=== PATIENT | female | born 2005 | race Caucasian/White ===

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

== ENCOUNTER 2025-06-22 17:45 | Emergency (ER) | payer OTHER, SELFPAY ==
--- NOTE | ~2025-06-22 | CT_ITS ---
CLINICAL HISTORY: blood in the urine, r o kidney stone CT abdomen and pelvis without contrast Comparison: US/CT/SR - US ABDOMEN LIMITED - 02/17/23 11:50 EDT Findings: No consolidation or effusion. Evaluation of the parenchymal organs is limited by the lack of intravenous contrast, however, the liver, gallbladder, spleen, pancreas, kidneys and adrenal glands are normal in appearance. No renal stones. No ureteral stones. No bowel obstruction, pneumoperitoneum, or pneumatosis. Moderate fecal loading in the colon. Normal appendix. Uterus and adnexa are normal. No acute fracture. IMPRESSION: No acute findings. No evidence of obstructive uropathy. No renal or ureteral stones seen. This document has been electronically signed by: Josiah Montero MD on 06/22/2025 21:40:13
[2025-06-22 17:50] VITALS: BP 141/76; PULSE 83; RESP 16; TEMP 36.8; O2SAT 99; BMI 33.2
--- NOTE | 2025-06-22 17:51 | ED_ITS ---
HPI - Female Genitourinary General Chief complaint: Urogenital-Female Stated complaint: pain when urinating Time Seen by Provider: 06/22/25 19:14 Source: patient and family Mode of arrival: ambulatory Limitations: no limitations History of Present Illness ED Provider: DR. Cabrera HPI Narrative: 20-year-old female came in for evaluation of dysuria, no no fever, no chills, no nausea, no vomiting, patient recently was treated for UTI on 06/09. Otherwise no abdominal pain, no flank pain, no fever, no chills. Sexually not active for the past 2 months was low risk for STD, no vaginal discharge, no vaginal bleed. No past intra-abdominal surgical history. Related Data Previous Rx's ?Medication ?Instructions ?Recorded albuterol sulfate 90 mcg/actuation 2 puff inhalation Q 4-6H PRN 08/19/21 aerosol inhaler (ProAir HFA) shortness of breath or wh eezing #8.5 grams azithromycin 250 mg tablet 250 mg PO DAILY 4 days #4 t abs 08/19/21 (Zithromax) prednisone 20 mg tablet 40 mg (2 x 20 mg) PO DAILY # 10 tabs 08/19/21 ondansetron 4 mg disintegrating 4 mg PO Q8H PRN nausea and 07/13/22 tablet vomiting #7 tabs nitrofurantoin 100 mg PO BID #14 caps 06/22 monohydrate/macrocrystals 100 mg capsule (Macrobid) phenazopyridine 100 mg tablet 100 mg PO TID #6 tabs (Pyridium) Allergies Allergy/AdvReac Type Severity Reaction Status Date / Time amoxicillin (AMOXICILLIN) Allergy Unknown RASH Verified 06/22/25 17:51 Review of Systems 2 Review of Systems: All other systems are reviewed and are negative Constitutional: Reports as per HPI and Reports no additional constitutional complaints Eyes: Reports as per HPI and Reports no additional eye complaints Reports system reviewed and no additional complaints, except as documented Cardiovascular: Reports as per HPI and Reports no additional cardiovascular complaints Respiratory: Reports as per HPI and Reports no additional respiratory complaints Gastrointestinal: Reports as per HPI and Reports no additional gastrointestinal complaints Genitourinary: Reports no additional female genitourinary complaints Musculoskeletal: Reports no additional musculoskeletal complaints Skin/Breast: Reports system reviewed and no additional complaints, except as docu Psychiatric: Reports no additional psychiatric complaints Endocrine: Reports no additional endocrine complaints Hematologic/Lymphatic: Reports no additional hematologic/lymphatic complaints Allergic/Immunologic: Reports no additional allergic/immunologic complaints Reports system reviewed and no additional complaints, except as documented and Reports Abnormal speech present [facility] Social History Social History Alcohol intake: never Smoked in Last 30 Days: No Use of substances other than those prescribed or required for medical reasons: No Advance Directives: No Advance Directives Information Provided: No Physical Exam 2 Vital Signs: Vital Signs: Last Vital Signs Temp 97.4 F 06/22/25 19:53 Pulse 78 06/22/25 19:53 Resp 16 06/22/25 19:53 BP 129/74 06/22/25 19:53 Pulse Ox 100 06/22/25 19:53 O2 Del Method Room Air 06/22/25 19:53 BMI result Body Mass Index 33.2 Vital signs have been reviewed and appear to be correct. Blood pressure elevated. Heart rate normal. Respiratory rate normal. Temperature normal. Oxygen saturation normal. Appearance: Alert. Oriented X3. No acute distress. Head: Normal external exam. Normocephalic. Atraumatic. No Antoine signs noted. No raccoon eyes noted Eyes: PERRLA. EOMI. Conjunctiva and sclera normal. Eyelids normal. ENT: TM's Normal. Pharynx normal. Uvula midline. Moist mucous membranes. No trismus noted. No drooling noted. No muffled voice noted. Neck: Normal inspection. Neck supple. FROM. No adenopathy. Thyroid Normal. No meningeal signs. No neck mass noted. CVS: Normal heart rate and rhythm. Heart sound normal. No murmurs noted. Pulses normal throughout. Respiratory: No respiratory distress. Painless inspiration. Breath sounds normal. No wheezes/rales/rhonchi noted. Chest nontender. No accessory muscle usage noted or decreased air movement noted. Abdomen: Soft and nontender. Bowel sounds normal in all 4 quadrants. No distention noted. No organomegaly noted. No visible injury noted. Back: No CVA tenderness. Full range of motion noted. Skin: Skin warm and dry. Normal skin color. Normal skin turgor. No rashes/lesions/lacerations noted. Extremities: No lower extremity edema. Extremities exhibit normal range of motion. Extremities nontender. Neuro: Oriented X 3. Cranial nerve exam: II-XII are grossly intact No motor deficit. No sensory deficit. Reflexes normal. Course Course Course Narrative: This is an RME: Additional HPI, ROS, PE not included below will be deferred to primary provider. RME assessment and note performed by: Huong Alvarez PA-C This is a 82-mme[age]-bet-female who presents to the ER with a complaint of dysuria. Reports that she was seen on 06/09 at an urgent care and was placed on antibiotics. Patient was seen at an urgent care for question of a urinary tract infection on 06/16 and was treated with Flagyl and Pyridium. Patient reports that her symptoms resolved however does report that she now has burning with urination, urinary frequency and urgency. No concerns for any sexually transmitted infection, she does report some left-sided back pain and low back pain. Plan: Labs, UA, further ER evaluation needed. Reevaluation(s) Reevaluation #1: Dysuria, recently finished 7 days course of Flagyl treating UTI, no risk for STD however will test for STD. Will start the patient for on Pyridium and 7 days course of Macrobid. +hematuria in the urine consider CT of the abdomen and pelvis rule out kidney stone signed out to Dr. Iqbal. Time: 20:30 Reevaluation #2: Rasheed: The patient was signed out to me at change of shift pending the results of a CT of the abdomen and pelvis to evaluate for a possible kidney stone. The CT shows no acute findings and specifically no obstructive uropathy or ureteral stones. Plan has been for the patient to be discharged with a prescription for nitrofurantoin b.i.d. and phenazopyridine p.r.n.. I explained the results of the scan to the patient and the plan with the prescriptions. The patient seems comfortable with this plan and can follow up with her PCP at [facility]. Return if worse. Time: 21:49 Medical Decision Making Differential Diagnosis Differential Diagnoses: The differential diagnosis associated with the presentation includes (UTI, STD, sepsis.) Admission/Observation Consideration of admission/observation: Escalation of care including admission/observation considered Lab Data MDM Lab Attestation statement: I reviewed the patient's lab results. 06/22/25 18:41 06/22/25 18:41 Labs: Lab Results 06/22/25 Range/Units 18:41 WBC 9.4 (4.8-10.8) X10*3/uL RBC 4.70 (4.20-5.50) X10*6/uL Hgb 14.3 (12.0-16.0) g/dl Hct 41.9 (37.0-47.0) % MCV 89.1 (80.0-98.0) fL MCH 30.4 (27.0-33.0) pg MCHC 34.1 (31.0-35.0) g/dl RDW 12.3 (11.0-16.0) % Plt Count 283 (160-400) X10*3/uL MPV 10.2 (9.4-12.3) fL Immature Gran % (Auto) 0.7 H (0.0-0.4) % Neut % (Auto) 47.9 (45-73) % Lymph % (Auto) 42.1 H (20-40) % Pickett % (Auto) 7.4 (2-11) % Eos % (Auto) 1.4 (0-4) % Baso % (Auto) 0.5 (0-2) % Lymph # (Auto) 4.0 (1.2-4.9) X10*3/uL Pickett # (Auto) 0.7 (0.1-1.2) X10*3/uL Eos # (Auto) 0.1 (0.0-0.4) X10*3/uL Baso # (Auto) 0.1 (0.0-0.2) X10*3/uL Abs Immat Gran (auto) 0.07 H (0.00-0.03) X10*3/uL Absolute Neuts (auto) 4.5 (2.0-8.3) x10*3/uL Absolute Nucleated RBC 0.000 (0.0-0.012) X10*3/uL Nucleated RBC % (auto) 0.0 (0.0-0.2) /100WBC Sodium 141 (135-145) mmol/L Potassium 3.8 (3.3-5.1) mmol/L Chloride 109 H (96-108) mmol/L Carbon Dioxide 24 (22-29) mmol/L Anion Gap 12 (12-20) BUN 10 (9-16) mg/dL Creatinine 0.82 (0.5-1.4) mg/dL Estim Creat Clear Calc 117.3 Estimated GFR > 60 Random Glucose 63 (60-115) mg/dL Calcium 9.2 (8.4-10.2) mg/dL Total Bilirubin 0.2 (0.0-1.0) mg/dL Direct Bilirubin < 0.2 (0.0-0.5) mg/dL AST 29 (5-31) U/L ALT 34 H (0-31) U/L Alkaline Phosphatase 91 (39-117) U/L Total Protein 7.7 (6.5-8.0) g/dL Albumin 4.5 (3.5-5.0) g/dL Beta HCG, Quant < 2 mIU/mL Urine Color Yellow Urine Appearance Clear Urine pH 6.5 (5.0-9.0) Ur Specific [place] 1.015 (1.005-1.025) Urine Protein Negative (Neg-Trace) mg/dL Urine Glucose (UA) Negative (Negative) mg/dL Urine Ketones Negative (Negative) mg/dL Urine Blood Small (1+) H (Negative) Urine Nitrite Negative (Negative) Ur Leukocyte Esterase Moderate (2+) H (Negative) Urine RBC 3-5 H (0-2) /HPF Urine WBC 11-20 (0-5) /HPF Ur Squamous Epith Cells 3-5 (0-2) /HPF Urine Bacteria Trace (None Seen) Hyaline Casts 0-2 (0-2) /LPF Urine Yeast Present Discharge Plan Discharge Clinical Impression: Dysuria Patient Disposition: Home, Self-Care Instructions: Dysuria (ED) Additional Instructions: Antibiotics has been sent to the [facility] pharmacy at 02:35 [facility] in [place] please take the antibiotic 2 times a day. In addition a prescription for a phenazopyridine has been sent. This is a medication that helps ease urinary discomfort. This medication will turn your urine orange. Please drink lot of fluids. Please stay in touch with your regular doctor for additional advice as needed and follow up as scheduled. Return to the emergency room if significantly worse, especially if fever or vomiting. Prescriptions: New nitrofurantoin monohyd/m-cryst [Macrobid] 100 mg capsule 100 mg PO BID Qty: 14 0RF Rx Instructions: must administer with a meal/food phenazopyridine [Pyridium] 100 mg tablet 100 mg PO TID Qty: 6 0RF No Action prednisone 20 mg tablet 40 mg PO DAILY Qty: 10 0RF albuterol sulfate [ProAir HFA] 90 mcg/actuation HFA aerosol inhaler 2 puff inhalation Q4-6H PRN (Reason: shortness of breath or wheezing) Qty: 8.5 0RF azithromycin [Zithromax] 250 mg tablet 250 mg PO DAILY 4 Days Qty: 4 0RF Rx Instructions: start on day 2 of therapy ondansetron 4 mg tablet,disintegrating 4 mg PO Q8H PRN (Reason: nausea and vomiting) Qty: 7 0RF Referrals: Jin Saucedo MD [Physician, Internal Medicine] Print Language: Guyanese
[2025-06-22 18:51] LABS: MANUAL DIFF FLAG NO
[2025-06-22 18:54] LABS: Appearance Urine Clear; Glucose Urine UA Negative (Negative); PH 6.5 (5.0-9.0); Specific Gravity - Urine 1.015 (1.005-1.025); UMIC TRIGGER UACC YES
[2025-06-22 19:00] LABS: Hematocrit 41.9 % (37.0-47.0); Hemoglobin 14.3 g/dl (12.0-16.0); Imm Gran Abs Auto 0.07 X10*3/uL (0.00-0.03); Imm Gran Pct Auto 0.7 % (0.0-0.4); Lymphocytes Absolute Auto 4.0 X10*3/uL (1.2-4.9); Mean Corpuscular HGB Conc 34.1 g/dl (31.0-35.0); Mean Corpuscular Hemoglobin 30.4 pg (27.0-33.0); Mean Corpuscular Volume 89.1 fL (80.0-98.0); NRBC Abs Auto 0.000 X10*3/uL (0.0-0.012); NRBC Pct Auto 0.0 /100WBC (0.0-0.2); Platelet Count 283 X10*3/uL (160-400); Red Blood Count 4.70 X10*6/uL (4.20-5.50); White Blood Count 9.4 X10*3/uL (4.8-10.8)
[2025-06-22 19:11] LABS: UACC Culture Trigger YES
[2025-06-22 19:21] LABS: Alanine Aminotransferase 34 U/L (0-31); Albumin Level 4.5 g/dL (3.5-5.0); Alkaline Phosphatase 91 U/L (39-117); Anion Gap 12 (12-20); Aspartate Amino Transferase 29 U/L (5-31); Blood Urea Nitrogen 10 mg/dL (9-16); Calcium 9.2 mg/dL (8.4-10.2); Carbon Dioxide 24 mmol/L (22-29); Chloride 109 mmol/L (96-108); Creatinine Clr Calc Pharmacy 117.3; Estimated Glomerular Filt Rate > 60; Potassium 3.8 mmol/L (3.3-5.1); Sodium 141 mmol/L (135-145); Total Protein 7.7 g/dL (6.5-8.0)
--- OUTSIDE RECORDS SUMMARY | 2025-06-22 19:47 | XMS_ITS | Encounter Summary ---
Author Organization [facility] Address [address] [place] [address] Phone Care Team Providers Care Population Geneticist Name Role Phone Johanne Park MD Primary Care Provider [phone] Encounter Details Date Type Department Care Team (Late st Contact Info) Description 07/14/2010 Documentation EM Family Medicine [address] [place] [address] Family Medicine, Physician [address] [place], [place] [address] Social History Tobacco Use Types Packs/Day Years Used Date Smoking Tobacco: Never Assessed Comments Unknown Sex and Gender Information Value Date Recorded Sex Assigned at Not on file Legal Sex Female 4:49 PM EDT Gender Identity Not on file Sexual Orientation Not on file documented as of this encounter Plan of Treatment Not on file documented as of this encounter Visit Diagnoses Not on filedocumented in this encounter Care Teams Population Geneticist Relationship Specialty Start Date End Date Johanne Park MD [address] [place] [address] [place] [address] PCP - General 04/10/17 03/01/23 documented as of this encounter
--- OUTSIDE RECORDS SUMMARY | 2025-06-22 19:47 | XMS_ITS | Clinical Summary ---
Author Organization [facility] Address [address] [place] [address] Phone Care Team Providers Care Cloth Washer Back Tender Name Role Phone Unavailable Primary Care Provider Unavailabl e Immunizations Immunization Administration Dates Next Due DTaP / Hep B / IPV 2005,2005, 005 DTaP 5 03/19/2009,09/11/2006 Hep A, ped/adol 03/22/2007,09/11/2006 Hep B, ped/adol 2005 Hib (HbOC) 2005,2005 Hib (PRP-T) 06/12/2006,2005 IPV 03/19/2009 Influenza Split 05/24/2012,05/15/2011,05/01/2010 Influenza, injectable, trivalent 009,07/05/2008,07/14/2007,06/12/2006 ,2005 MMR 03/19/2009,03/17/2006 Pneumococcal Conjugate 06/12/2006,2005,,2005 Varicella 03/19/2009,03/17/2006 Family History Relation Name Status Comments Brother 1 Alive Brother: Alive and well, Alive and well Brother 2 Alive Brother: Alive and well, Alive and well Cousin 1 Cousin: Autism, ADD/ADHD Cousin 2 Cousin: Autism, ADD/ADHD Father Alive Father: Asthma Maternal Grandfather Materna l grandparent: Diabetes mellitus Maternal Grandmother Materna l grandmother: Diabetes mellitus, kidney problems Mother Alive Mother: Alive a nd well Paternal Grandfather Paterna l grandfather: Diabetes mellitus Paternal Grandmother Paterna l grandmother: Valvular heart disease, Obesity Social History Tobacco Use Types Packs/Day Years Used Date Smoking Tobacco: Never Assessed Comments Unknown Sex and Gender Information Value Date Recorded Sex Assigned at Not on file Legal Sex Female 4:49 PM EDT Gender Identity Not on file Sexual Orientation Not on file Last Filed Vital Signs Vital Sign Reading Time Taken Comments Blood Pressure 86/54 06/20/2013 12:00 AM EDT Pulse 76 04/09/2011 12:00 AM EDT Temperature 36.6 C (97.9 F) 06/20/2013 12:00 AM EDT Respiratory Rate - - Oxygen Saturation 97% 04/26/2012 12:00 AM EDT Inhaled Oxygen Concentration - - Weight 37.4 kg (82 lb 8 oz) 06/20/2013 12:00 AM EDT Height 132.1 cm (4' 4 ) 06/20/2013 12:00 AM EDT Body Mass Index 21.45 06/20/2013 12:00 AM EDT Plan of Treatment Health Maintenance Due Date Last Done Comments DTaP,Tdap,and Td Vaccines (6 - Tdap) 2016 03/19/2009, 09/11/2006, 2005, Additional history exists HPV Vaccines (1 - 3-dose series) 2020 Men B Vaccine (1 of 2 - Standard) 2021 Influenza Vaccines (#1) 2025 05/24/20 12, 05/15/2011, 05/01/2010, Additional history exists COVID-19 Vaccine ( - 2024- season) 2025 Hepatitis B Vaccines Completed 2005, 2005, 2005, Additional history exists HIB Vaccines Completed 06/12/2006, 08/31, 2005, Additional history exists Pneumococcal Vaccine Completed 06/12/2006, 2005, 2005, Additional history exists Hepatitis A Vaccines Completed 03/22/2007, 09/11/19 07 IPV Vaccines Completed 03/19/2009, 08/31, 2005, Additional history exists MMR Vaccines Completed 03/19/2009, 03/17/2006 Varicella Vaccines Completed 03/19/2009, 03/17/2006 Meningococcal Vaccine Aged Out No magdaleno jung eligible based on patient's age to complete this topic
--- OUTSIDE RECORDS SUMMARY | 2025-06-22 19:47 | XMS_ITS | Encounter Summary ---
Author Organization [facility] Address [address] [place] [address] Phone Care Team Providers Care Screen Printing Machine Operator Helper Name Role Phone Johanne Park MD Primary Care Provider [phone] Encounter Details Date Type Department Care Team (Late st Contact Info) Description 03/18/2010 Documentation EM Family Medicine [address] [place] [address] Family Medicine, Physician [address] [place], [place] [address] Social History Tobacco Use Types Packs/Day Years [...] on filedocumented in this encounter Care Teams Screen Printing Machine Operator Helper Relationship Specialty Start Date End Date Johanne Park MD [address] [place] [address] [place] [address] PCP - General 04/10/17 03/01/23 documented as of this encounter
--- OUTSIDE RECORDS SUMMARY | 2025-06-22 19:47 | XMS_ITS | Encounter Summary ---
Author Organization [facility] Address [address] [place] [address] Phone Care Team Providers Care Physical Integration Practitioner Name Role Phone Johanne Park MD Primary Care Provider [phone] Encounter Details Date Type Department Care Team (Late st Contact Info) Description 06/17/2012 Documentation [facility] Family Medicine [address] [place] [address] Family Medicine, Physician [address] [place], [place] [id number] Social History Tobacco Use Types Packs/Day Years [...] on filedocumented in this encounter Care Teams Physical Integration Practitioner Relationship Specialty Start Date End Date Johanne Park MD [address] [place] [address] [place] [address] PCP - General 04/10/17 03/01/23 documented as of this encounter
--- OUTSIDE RECORDS SUMMARY | 2025-06-22 19:47 | XMS_ITS | Encounter Summary ---
Author Organization [facility] Address [address] [place] [address] Phone Care Team Providers Care Director Of Front Office Name Role Phone Johanne Park MD Primary Care Provider [phone] Encounter Details Date Type Department Care Team (Late st Contact Info) Description 10/29/2010 Documentation EM Family Medicine [address] [place] [address] Family Medicine, Physician [address] [place], [place] [address] Social History Tobacco Use Types Packs/Day Years [...] on filedocumented in this encounter Care Teams Director Of Front Office Relationship Specialty Start Date End Date Johanne Park MD [address] [place] [address] [place] [address] PCP - General 04/10/17 03/01/23 documented as of this encounter
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
--- OUTSIDE RECORDS SUMMARY | 2025-06-22 19:47 | XMS_ITS | Encounter Summary ---
Author Organization [facility] Address [address] [place] [address] Phone Care Team Providers Care Photocomposing Keyboard Operator Name Role Phone Johanne Park MD Primary Care Provider [phone] Encounter Details Date Type Department Care Team (Late st Contact Info) Description 04/16/2017 Conversion Encounter [facility] [address] [place] [address] Social History Tobacco Use Types Packs/Day Years [...] on filedocumented in this encounter Care Teams Photocomposing Keyboard Operator Relationship Specialty Start Date End Date Johanne Park MD [address] [place] [address] PCP - General 04/10/17 03/01/23 documented as of this encounter
--- OUTSIDE RECORDS SUMMARY | 2025-06-22 19:47 | XMS_ITS | Clinical Summary ---
Author Organization [facility] [address] [place] [address] [facility] [place] [address] Phone Care Team Providers Care Service Technician Name Role Phone Jin Saucedo MD Primary Care Provider Allergies Active Allergy Reactions Criticality Noted Date Comments Amoxicillin 08/11/2013 Rash No welts Medications loratadine (CLARITIN) 10 mg tablet Take 1 Tablet by mouth daily for 90 days. 2 Active fluticasone propionate (FLONASE) 50 mcg/actuation nasal spray 1 [place] by Each Nare route daily. 2 Active mupirocin (BACTROBAN) 2 % ointment Apply 1 cm twice daily for 7 to 10 days. 1 Active reservoir inhalation (INSPIREASE) device Take 1 Device by mouth as needed for Other (to adminster MDI). 1 Active ibuprofen (ADVIL,MOTRIN) 600 mg tablet Take 1 Tab by mouth every 8 hours as needed for Pain. 0 Active albuterol HFA (PROAIR HFA ; PROVENTIL HFA ; VENTOLIN HFA) 90 mcg/actuation inhaler Inhale 2 Puffs into the lungs every 4 hours as needed for Shortness of Breath. Active Active Problems Problem Noted Date Diagnosed Date Chlamydia 06/27/2021 Overview (09/06/2024): 10-21 treated Seasonal allergic rhinitis due to pollen 021 Overview (09/06/2024): Winter and spring Claritin/flonase Last Assessment & Plan: 07/22: has been well. On meds a needed Dysmenorrhea 03/13/2020 Overview (09/06/2024): 9-20 treated with motrin/tylenol/lab today for PCOS 10-21 improved Last Assessment & Plan: 9-20 treated with motrin/tylenol/lab today for PCOS 10-21 improved Obesity due to excess calori es without serious comorbidity with body mass index (BMI) in 95th to 98th percentile for age in pediatric patient 03/16/2014 Encounters Date Type Department Care Team Description 06/16/2025 Telephone Adult Medicine [address] [phone] Jin Saucedo MD 05/29/2025 Telephone Adult Medicine [address] [phone] Jin Saucedo MD from Last 3 Months Immunizations Immunization Administration Dates Next Due DTaP (Infanrix) 6wks to less than 7yo 03/19/2009 ,09/11/2006 [id number] (Pentacel) 2mo to less than 5yo 06/12/2006,2005,2005,05/13 [id number]-[id number] (Pediarix) 6 w ks to less than 7yo 2005,2005,2005 HPV 9-valent (Gardisil) 9yo to less than 46yo 04/03/2016 HPV, Quadrivalent 01/20/2017,06/12/2006,09/16/19 06 Hepatitis A Pediatric (Havri x; Vaqta) 12mo to less than 19yo 03/22/2007,09/11/2006 Hepatitis B Pediatric (Enger ix B; Recombivax HB) to less than 20 yo 2005 IPV Inactivated polio (Ipol) 6wks and older 03/19/2009 Influenza trivalent, 0.5mL, preservative free (Fluarix; FluLaval; Fluzone) ages 6mo and older (Afluria) 3 years and older 05/28/2020,07/25/2019,08/04/2014 Influenza trivalent, with pr eservative (Fluzone; Afluria) 6mo and older 06/24/2021,05/24/2012,05/15/2011,05/01,06/06/2009,07/05/2008,07/14/2007 ,06/12/2006,2005 MMR, measles mumps and rubel la Live (Priorix; M-M-R II) 12mo and older 03/19/2009,03/17/2006 Meningococcal Conjugate (Men veo) MenACWY 11yo to less than 19 yo 07/16/2022 Meningococcal MCV4P 04/03/2016 PPD Test 07/29/2016 Pneumococcal Conjugate Vacci ne, 7 Valent 06/12/2006,2005,2005,05/12 Tdap Tetanus diptheria acell ular pertussis (Boostrix; Adacel) 7yo and older 04/03/2016 Varicella live (Varivax) 12m o and older 03/19/2009,03/17/2006 Surgical History Surgery Date Site/Laterality Comments OTHER SURGICAL HISTORY PROCEDURE: DENIES PREVIOUS SURGERY Medical History Medical History Date Comments Croup x3 2009 DX:Croup; COMMEN T: Maik direct laryngoscopy and flex bronchoscopy GERD (gastroesophageal reflu x disease) 2004 vomiting,admitted 2006 acid reflux [facility] DX:GERD (gastroesophageal reflux disease); COMMENT: Tess Ceballos 2004/,2006 CT head scan nl except cerebellar tonsillar ectopy/UGI (h.pylori)not treated bronchoscopy and last GI visit 2010- off all ETIENNE meds Fracture of right foot 12-08 DX:Fractu re of right foot Allergic rhinitis 03/16/2014 DX:Allergic rh initis; COMMENT: Winter and spring Claritin/flonase/singulair/zadi tor Abdominal pain 03/16/2014 DX:Abdominal [place] n; COMMENT: 04-12- trial lactaid Cerebellar tonsillar ectopia (CMS/HCC V24, 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 ? To have tonsils removed. 03/09/19 noted that patient never went to ENT or came in for follow up. History of strep pharyngitis 07/16/2015 DX: History of strep pharyngitis; COMMENT: 09/24/17 - Azithromycin. And - per H Sanchez History of early menarche 07/25/2019 DX:His tory of early menarche; COMMENT: Noted on Summary - 09/24/17 BMI (body mass index), pediatric, 95-99% for age 703/16/2014 DX:BMI (body mass index), pediatric, 95-99% for age; COMMENT: 04-13 nutrition ref via pedi endocrine 04-14 ref for nutrition 04/03/16 - father will call today Asthma DX:Asthma; COMME NT: 03/09/19, 09/17/18, 03/22/18 Mild exacerbation. Refill - ProAir Pdhmm9s, Flonase spray Lucero [facility],08-12 Jarek Horan NP Flovent 44 mcg 2 puffs daily(consider QVAR)f/u 6m repeat spirometry diag infancy ,triggers are cold air,running,uris,and allergen exposure ie cats, No hosp,orapred x2 sleep study 2011- NORMAL; singulair 2011 Flovent 44 bid f/u q 6m d/c 04-14 no * Dysmenorrhea 03/13/2020 DX:Dysmenorrhea Chronic tonsillitis 07/17/2020 DX:Chronic t onsillitis; COMMENT: 07-20 [facility] tonsillectomy Difficulty with family 06/12/2021 DX:Diffic ulty with family; COMMENT: 06-20 active 51A Obesity due to excess calori es without serious comorbidity with body mass index (BMI) in 95th to 98th percentile for age in pediatric patient 03/16/2014 DX:Obesity due to excess calories without serious comorbidity with body mass index (BMI) in 95th to 98th percentile for age in pediatric patient; COMMENT: 04-13 nutrition ref via pedi endocrine 04-14 ref for nutrition 04/03/16 - father will call today 05-20 ref pedi endocrine COVID-19 virus infection 03/31/2021 DX:COVI D-19 virus infection; COMMENT: 03/20 - symptomatic Seasonal allergic rhinitis d ue to pollen 02/06/2021 DX:Seasonal allergic rhiniti s due to pollen Chlamydia 06/27/2021 DX:Chlamydia; CO MMENT: 06-20 treated Family History Medical History Relation Name Comments Other: Other Brother 1 ADHD,learning p gil,obesity Hypertension Father Diabetes Maternal Grandfather Heart d isease, Cancer Diabetes Maternal Grandmother Stroke, kidney disease, HTN Asthma Mother's side mat uncle Liver disease Paternal Grandfather Diabetes Paternal Grandmother Heart d isease, HTN., [place] age 27 Relation Name Status Comments Brother 1 Brother 2 Alive ADHD Brother 3 Alive mild CP Brother 4 Alive Father Alive disabled MOVING CONSULTANT Maternal Grandfather Maternal Grandmother Mother Alive Mother's side Paternal Grandfather Paternal Grandmother Social History Tobacco Use Types Packs/Day Years [...] care for your loved ones. For example, professor of early childhood education or elderly care for an older adult? [...] on file Sexual Orientation Not on file Obstetrics History Last Filed Vital Signs Vital Sign Reading Time Taken Comments Blood Pressure 94/62 07/16/2022 9:17 AM EST Pulse 68 07/16/2022 9:17 AM EST Temperature - - Respiratory Rate - - Oxygen Saturation - - Inhaled Oxygen Concentration - - Weight 93.8 kg (206 lb 11.2 oz) 12/02/2021 9:10 AM EDT Height 165.7 cm (5' 5.25 ) 07/16/2022 9:17 AM ES T Body Mass Index - - Plan of Treatment Upcoming Encounters Date Type Department Care Team (Late st Contact Info) Description 06/30/2025 12:30 PM EDT Office Visit Adult Medicine [facility] [address] [place], [place] [phone] Jin Saucedo MD [address] [place], [place] Health Maintenance Due Date Last Done Comments Meningococcal B Vaccine (1 of 2 - Standard) 2021 HIV Screening 08/03/2022 Hepatitis C Screening 08/03/2022 Annual Well Child Visit (3-21 years old) 07/16/2023 07/16/2022, 06/24/2021, 05/10/2020, Additional history exists Gonorrhea/Chlamydia Screening 07/16/2023 07/16/2022 COVID-19 Vaccine ( - season) 2025 Influenza Vaccine (#1) 2025 , 05/28/2020, 07/25/2019, Additional history exists Cholesterol Screening (Lipid Panel) 05/28/2025 05/28/2020 DTaP,Tdap,and Td Vaccines (7 - Td or Tdap) 04/03/2026 04/03/2016, 03/19/2009, 09/11/2006, Additional history exists Social Influencers of Health Screening 05/11/2026 05/11/2025 RSV Immunization Adult Patients (1 - 1-dose 75+ series) 2080 Hepatitis B Vaccines Completed 2005, 2005, 2005, Additional history exists HIB Vaccines Completed 06/12/2006, 08/31, 2005, Additional history exists Pneumococcal Vaccine: Pediatrics (0 to 5 Years) and At-Risk Patients (6 to 49 Years) Completed 06/12/2006, 2005, 2005, Additional history exists Hepatitis A Vaccines Completed 03/22/2007, 09/11/19 07 IPV Vaccines Completed 03/19/2009, 05/31, 2005, Additional history exists MMR Vaccines Completed 03/19/2009, 03/17/2006 Varicella Vaccines Completed 03/19/2009, 03/17/2006 HPV Vaccines Completed 01/20/2017, 11/2015, 06/12/2006, Additional history exists Meningococcal ACWY Vaccine Completed 07/16/2022, Depression Screening Completed 05/11/2025 RSV Immunization Patients Under 20 months Aged Out No longer eligible based on patient's age to complete this topic Procedures Procedure Name Priority Date/Time Associated Diagnosis Comments GONORRHEA/CHLAMYDIA SCRREENING Routine 07/16/2022 LIPID PANEL Routine 05/28/2020 from Last 3 Months or Most Recently Relevant to Health Maintenance Results * Gonorrhea/Chlamydia Screening (07/16/2022) Gonorrhea/Chla mydia Screening Abstracted Historical Provider HEALTH MAINTENANCE Final Result * Lipid panel (05/28/2020) LDL/HDL Ratio 2 0 - 4 Triglycerides 65 0 - 150 mg/dL Cholesterol 134 0 - 200 mg/dL HDL 56 >=40 mg/dL LDL Cholesterol 65 0 - 100 mg/dL Blood Venous blood specimen / Unknown Historical Provider LAB BLOOD ORDERABLES Ashia l Result from Last 3 Months or Most Recently Relevant to Health Maintenance Insurance [facility] [facility] Care Teams Service Technician Relationship Specialty Start Date End Date Jin Saucedo MD [address] [place] [phone] PCP - General 12/21/23
--- OUTSIDE RECORDS SUMMARY | 2025-06-22 19:47 | XMS_ITS | Clinical Summary ---
Author Organization [facility] Address [address] [place] [address] Care Team Providers Care Instrumental Musician Name Role Phone Pcp, No Primary Care Provider Unavailabl e Allergies Active Allergy Reactions Criticality Noted Date Comments Amoxicillin Hives Medium 11/26/2018 Medications No known medications Social History Tobacco Use Types Packs/Day Years Used Date Smoking Tobacco: Never Assessed Comments Unknown Sex and Gender Information Value Date Recorded Sex Assigned at Not on file Legal Sex Female 4:30 PM EDT Gender Identity Not on file Sexual Orientation Not on file Last Filed Vital Signs Vital Sign Reading Time Taken Comments Blood Pressure - - Pulse 67 11/26/2018 4:35 PM EDT Temperature 37.2 C (98.9 F) 11/26/2018 4:35 PM EDT Respiratory Rate - - Oxygen Saturation 99% 11/26/2018 4:35 PM EDT Inhaled Oxygen Concentration - - Weight 83.9 kg (185 lb) 11/26/2018 4:35 PM EDT Height 158.8 cm (5' 2.5 ) 11/26/2018 4:35 PM EDT Body Mass Index 33.3 11/26/2018 4:35 PM EDT Plan of Treatment Health Maintenance Due Date Last Done Comments Hepatitis C Virus Screening 2005 HIV Screening 2018 HPV Vaccines (1 - 3-dose series) 2020 DTaP/Tdap/Td Vaccines (1 - Tdap) 2024 Hepatitis B Vaccines (1 of 3 - 19+ 3-dose series) 2024 Influenza Vaccine 03/31/2025 COVID-19 Vaccine ( - 2023-2 5 season) 2025 Pneumococcal Vaccine: Pediat ranjana (0-5 Years) and At-Risk Patients (6 to 49 Years) Aged Out No longer eligible b ased on patient's age to complete this topic Insurance [facility] Care Teams Instrumental Musician Relationship Specialty Start Date End Date Pcp, No PCP - General General Medicine 11/26/18
--- OUTSIDE RECORDS SUMMARY | 2025-06-22 19:47 | XMS_ITS | Encounter Summary ---
Author Organization [facility] Address [address] [place] [phone] Phone Care Team Providers Care Metal Cutter Name Role Phone Johanne Park MD Primary Care Provider [phone] Encounter Details Date Type Department Care Team (Late st Contact Info) Description 01/24/2011 Documentation EM Family Medicine [address] [place] [address] Family Medicine, Physician [address] [place], [place] [phone] Social History Tobacco Use Types Packs/Day Years [...] on filedocumented in this encounter Care Teams Metal Cutter Relationship Specialty Start Date End Date Johanne Park MD [address] [place] [address] [place] [address] PCP - General 04/10/17 03/01/23 documented as of this encounter
[2025-06-22 19:53] VITALS: BP 129/74; PULSE 78; RESP 16; TEMP 36.3; O2SAT 100
[2025-06-22 22:04] VITALS: BP 111/70; PULSE 73; RESP 16; TEMP 36.7; O2SAT 98
[2025-06-23 05:36] LABS: CT PCR Urine NOT DETECTED (Not Detect.); NG PCR Urine NOT DETECTED (Not Detect.)
== END 2025-06-22 22:05 | disposition home or self-care (01) ==
PROVIDERS: Emergency Medicine; Physician Assistant Medical; Emergency Provider Emergency Medicine
DX: R30.0 Dysuria (principal); R10.23 Pelvic and perineal pain bilateral; Z20.2 Contact with and (suspected) exposure to infections with a predominantly sexual mode of transmission; Z79.899 Other long term (current) drug therapy
CPT/HCPCS: 36415; 74176; 80048; 80076; 81001; 84702; 85025; 87086; 87147; 87491; 87591; 99284

== ENCOUNTER → 2025-06-22 19:34 | Outpatient (BNV) | payer OTHER, SELFPAY | PROVIDERS: Emergency Provider Emergency Medicine; Visit Provider Radiology Diagnostic Radiology | DX: R31.9 Hematuria, unspecified (principal) | CPT/HCPCS: 74176 ==